=== PATIENT | female | born 1945 | race Caucasian/White ===

== ENCOUNTER 2016-05-16 06:17 | Day surgery (SDC) | payer OTHER, BC ==
[2016-05-15 08:47] VITALS: BMI 29.2
[~2016-05-16 06:17] MED LIST: BSS (NA/CA/MG/K) BALANCED SALT SOLUTION OPHTH SOLN 15 ML BOTTLE OD ONE; CHONDROITIN SU A/HYALUR SOD 1 KIT IO ONE; LIDOCAINE HCL 1% PRESERVATIVE FREE - 30ML VIAL IO ONE; TOBRA 0.3%/DEXAMETH 0.1% OPHTHALMIC SUSP 2.5 ML BTL TP ONE
--- NOTE | 2016-05-16 06:17 | HP ---
History & Physical Update - History History: No Change - Physical Physical: No Change - Assessment Assessment: No Change - Plan Plan: No Change
[2016-05-16] MEDS ORDERED: TROPICAMIDE 1% OPHTH SOLN 15 ML BOTTLE OP SCH (06:30)
[2016-05-16] MEDS ORDERED: CYCLOPENTOLATE HCL 1% OPHTH SOLN 2 ML BOTTLE OP SCH (06:30)
[2016-05-16] MEDS ORDERED: MOXIFLOXACIN HCL 0.5% OPHTHALMIC 3 ML BOTTLE OP SCH (06:30)
[2016-05-16] MEDS ORDERED: PHENYLEPHRINE 2.5% OPHTH SOLN 15 ML BOTTLE OP SCH (06:30)
[2016-05-16 06:41] VITALS: TEMP 97.6
[2016-05-16] MEDS: PHENYLEPHRINE 2.5% OPHTH SOLN 15 ML BOTTLE ONE ×3 (06:55→07:12)
[2016-05-16] MEDS: MOXIFLOXACIN HCL 0.5% OPHTHALMIC 3 ML BOTTLE ONE ×3 (06:55→07:12)
[2016-05-16] MEDS: TROPICAMIDE 1% OPHTH SOLN 15 ML BOTTLE ONE ×3 (06:55→07:12)
[2016-05-16] MEDS: CYCLOPENTOLATE HCL 1% OPHTH SOLN 2 ML BOTTLE ONE ×3 (06:55→07:12)
[2016-05-16] MEDS ORDERED: TOBRA 0.3%/DEXAMETH 0.1% OPHTHALMIC SUSP 2.5 ML BTL ONE (07:21)
[2016-05-16] MEDS ORDERED: LIDOCAINE HCL/PF 1% SDV 5ML VIAL ONE (07:21)
[2016-05-16] MEDS ORDERED: EPINEPHrine/PF 1 MG/1 ML (1:1,000) AMPULE ONE (07:21)
[2016-05-16] MEDS ORDERED: POVIDONE-IODINE 5% OPHTHALMIC PREP 30 ML SOLUTION ONE (07:22)
[2016-05-16] MEDS ORDERED: TETRACAINE 0.5% OPHTH SOLN 2 ML BOTTLE ONE (07:22)
[2016-05-16] MEDS ORDERED: MIDAZOLAM HCL 2 MG/2 ML SINGLE DOSE VIAL ONE (08:04)
[2016-05-16] MEDS ORDERED: TETRACAINE 0.5% HCL 0.6ML DROPPER.BOTTLE TP ONE (08:08)
[2016-05-16] MEDS ORDERED: POVIDONE-IODINE 5% OPHTHALMIC PREP 30 ML SOLUTION OD ONE (08:09)
[2016-05-16] MEDS ORDERED: LIDOCAINE HCL 1% PRESERVATIVE FREE - 30ML VIAL IO ONE (08:13)
[2016-05-16] MEDS ORDERED: BSS (NA/CA/MG/K) BALANCED SALT SOLUTION OPHTH SOLN 15 ML BOTTLE OD ONE ×2 (08:13)
[2016-05-16] MEDS ORDERED: CHONDROITIN SU A/HYALUR SOD 1 KIT IO ONE (08:19)
[2016-05-16] MEDS ORDERED: ACETYLCHOLINE 1:100 INTRA-OCUL 20 MG/2 ML KIT ONE (08:33)
[2016-05-16] MEDS ORDERED: ACETYLCHOLINE 1:100 INTRA-OCUL 20 MG/2 ML KIT IO ONE (08:42)
[2016-05-16] MEDS ORDERED: TOBRA 0.3%/DEXAMETH 0.1% OPHTHALMIC SUSP 2.5 ML BTL TP ONE (09:02)
[2016-05-16] MEDS ORDERED: PROPOFOL 20 ML ONE (09:29)
[2016-05-16] MEDS ORDERED: SUCCINYLCHOLINE CHLORIDE 200 MG/10 ML VIAL ONE (09:31)
[2016-05-16 13:19] VITALS: BP 140/84; PULSE 68
--- NOTE | 2016-05-17 12:10 | OP ---
DATE OF OPERATION: 05/16/2016 SURGEON: Yo Jasso MD PREOPERATIVE DIAGNOSIS: Cataract, right eye. OPERATION: Phacoemulsification and intraocular lens implantation, right eye. POSTOPERATIVE DIAGNOSIS: Cataract, right eye. ANESTHESIA: Topical. COMPLICATIONS: None. BLOOD LOSS: None. SPECIMEN: None. BRIEF HISTORY: The patient is a 71-year-old woman with a past medical history of high cholesterol, who presented with decreased vision in the right eye down to 20/100 due to a 2 to 3+ nuclear sclerotic lens with few cortical spokes. After the risks, benefits and alternatives to cataract surgery were discussed with the patient, she consented to the surgery for the right eye. The patient was brought to the operating room and prepped and draped in the usual sterile fashion and an eyelid speculum was inserted in the right eye. A paracentesis was made and the anterior chamber was inflated with nonpreserved lidocaine. This was followed by injection of Viscoat. A groove was made in the temporal clear cornea which was tunneled forward with a crescent blade. The anterior chamber was entered with a 2.75 keratome. The cystotome was used to make an incision in the center of the capsule and a continuous curvilinear capsulorrhexis was created. The lens was hydrodissected until it was found to rotate freely within the capsular bag. Phacoemulsification was then used to remove the lens in its entirety. Irrigation and aspiration was used to remove residual cortical material. At this point it was noted that there was an irregularity in the posterior capsule, especially temporally, and there was a question of the integrity of the posterior capsule. It was determined to place an MA60AC lens in the sulcus. The anterior chamber and sulcus area were refilled with ProVisc and a 21.5 diopter MA60AC lens was folded and placed in the sulcus and the 2nd haptic was dunked without incident after the wound was enlarged. Irrigation and aspiration was used to remove residual viscoelastic. The wound was stromally hydrated and one 10-0 nylon suture was placed at the wound. Miochol was injected into the eye and the pupil was found to constrict round and regular with no peaking of the wound. No vitreous was found at the wound at any time. The eyelid speculum was removed from the eye and TobraDex drops and a clear shield were placed over the right eye. The patient was transferred to the recovery room in stable condition and will follow up tomorrow. Az [id number] MTDD
== END 2016-05-16 11:00 | disposition home or self-care (01) ==
LOC: JASU-SURG 06:17
PROVIDERS: ATTEND Ophthalmology
PROC: 08RJ3JZ Replacement of Right Lens with Synthetic Substitute, Percutaneous Approach (ICD-10-PCS; principal; 2016-05-16 08:00)
DX: H25.11 Age-related nuclear cataract, right eye (principal)

== ENCOUNTER 2016-06-20 06:24 | Day surgery (SDC) | payer OTHER, BC ==
[2016-06-15 13:26] VITALS: BMI 29.2
--- NOTE | 2016-06-20 06:16 | HP ---
History & Physical Update - History History: No Change - Physical Physical: No Change - Assessment Assessment: No Change - Plan Plan: No Change
[~2016-06-20 06:24] MED LIST changes: -BSS (NA/CA/MG/K) BALANCED SALT SOLUTION OPHTH SOLN 15 ML BOTTLE OD ONE; -CHONDROITIN SU A/HYALUR SOD 1 KIT IO ONE; +CYCLOPENTOLATE HCL 1% OPHTH SOLN 2 ML BOTTLE OP SCH; -LIDOCAINE HCL 1% PRESERVATIVE FREE - 30ML VIAL IO ONE; +MOXIFLOXACIN HCL 0.5% OPHTHALMIC 3 ML BOTTLE OP SCH; +PHENYLEPHRINE 2.5% OPHTH SOLN 15 ML BOTTLE OP SCH; +TROPICAMIDE 1% OPHTH SOLN 15 ML BOTTLE OP SCH
[2016-06-20] MEDS ORDERED: TROPICAMIDE 1% OPHTH SOLN 15 ML BOTTLE ONE (06:34)
[2016-06-20] MEDS ORDERED: CYCLOPENTOLATE HCL 1% OPHTH SOLN 2 ML BOTTLE ONE (06:34)
[2016-06-20] MEDS ORDERED: MOXIFLOXACIN HCL 0.5% OPHTHALMIC 3 ML BOTTLE ONE (06:34)
[2016-06-20] MEDS ORDERED: PHENYLEPHRINE 2.5% OPHTH SOLN 15 ML BOTTLE ONE (06:35)
[2016-06-20] MEDS ORDERED: TROPICAMIDE 1% OPHTH SOLN 15 ML BOTTLE OS ONE ×3 (06:45→07:05)
[2016-06-20] MEDS ORDERED: CYCLOPENTOLATE HCL 1% OPHTH SOLN 2 ML BOTTLE OS ONE ×3 (06:45→07:05)
[2016-06-20] MEDS ORDERED: MOXIFLOXACIN HCL 0.5% OPHTHALMIC 3 ML BOTTLE OS ONE ×3 (06:45→07:05)
[2016-06-20] MEDS ORDERED: PHENYLEPHRINE 2.5% OPHTH SOLN 15 ML BOTTLE OS ONE ×3 (06:45→07:05)
[2016-06-20 06:54] VITALS: TEMP 97.7
[2016-06-20] MEDS ORDERED: TOBRA 0.3%/DEXAMETH 0.1% OPHTHALMIC SUSP 2.5 ML BTL ONE (07:21)
[2016-06-20] MEDS ORDERED: BUPIVACAINE HCL/PF 0.75% 10 ML VIAL ONE (07:21)
[2016-06-20] MEDS ORDERED: LIDOCAINE 1% P/F 10 MG/ML VIAL ONE (07:21)
[2016-06-20] MEDS ORDERED: EPINEPHrine/PF 1 MG/1 ML (1:1,000) AMPULE ONE (07:21)
[2016-06-20] MEDS ORDERED: ACETYLCHOLINE 1:100 INTRA-OCUL 20 MG/2 ML KIT ONE (07:22)
[2016-06-20] MEDS ORDERED: BSS (NA/CA/MG/K) BALANCED SALT SOLUTION OPHTH SOLN 15 ML BOTTLE ONE (07:22)
[2016-06-20] MEDS ORDERED: TRYPAN BLUE 0.5 ML DISP.SYRIN ONE (07:22)
[2016-06-20] MEDS ORDERED: POVIDONE-IODINE 5% OPHTHALMIC PREP 30 ML SOLUTION ONE (07:22)
[2016-06-20] MEDS ORDERED: MIDAZOLAM HCL 2 MG/2 ML SINGLE DOSE VIAL ONE (07:58)
[2016-06-20] MEDS ORDERED: TETRACAINE 0.5% OPHTH SOLN 2 ML BOTTLE TP ONE (07:58)
[2016-06-20] MEDS ORDERED: LIDOCAINE HCL 1% PRESERVATIVE FREE - 30ML VIAL IO ONE (08:10)
[2016-06-20] MEDS ORDERED: CHONDROITIN SU A/HYALUR SOD 1 KIT IO ONE (08:11)
[2016-06-20] MEDS ORDERED: TOBRA 0.3%/DEXAMETH 0.1% OPHTHALMIC SUSP 2.5 ML BTL TP ONE (08:27)
[2016-06-20 09:50] VITALS: BP 140/88; PULSE 68
--- NOTE | 2016-06-21 07:57 | OP ---
DATE OF OPERATION: 06/20/2016 SURGEON: Yo Jasso MD PREOPERATIVE DIAGNOSIS: Cataract, left eye. OPERATION: Phacoemulsification and intraocular lens implantation, left eye. POSTOPERATIVE DIAGNOSIS: Cataract, left eye. ANESTHESIA: Topical. COMPLICATIONS: None. BLOOD LOSS: None. SPECIMEN: None. BRIEF HISTORY: The patient is a 71-year-old woman with a past medical history of high cholesterol who presented with decreased vision in the left eye due to 2 to 3+ nuclear sclerotic lens with nasal anterior cortical changes. After the risks, benefits, and alternatives to cataract surgery were discussed with the patient, she consented to cataract surgery for the left eye. DESCRIPTION OF PROCEDURE: The patient was brought to the operating room and prepped and draped in the usual sterile fashion. Then, an eyelid speculum was inserted in the left eye, a paracentesis was made, and the anterior chamber was inflated with nonpreserved lidocaine. This was followed by injection of Viscoat. A groove was made in the superotemporal clear cornea which was tunneled forward with a crescent blade. The anterior chamber was entered with a 2.75 keratome. The cystotome was used to make an incision at the center of the capsule, and a continuous curvilinear capsulorrhexis was created. The lens was hydrodissected until it was found to rotate freely within the capsular bag. Phacoemulsification was then used to remove the lens in its entirety. Irrigation and aspiration were used to remove residual cortical material. The anterior chamber and capsular bag were reinflated with Provisc, and a 22.5 diopter [id number] AcrySof intraocular lens was injected into the capsular bag using the Maple injector. The lens was dialed into place using the Sinskey hook. Irrigation and aspiration were used to remove residual viscoelastic. The wound was stromally hydrated until it was found to be watertight and the eye was in an appropriate pressure. The eyelid speculum was removed from the eye and TobraDex drops and a clear shield were placed over the left eye. The patient was transferred to the recovery room in stable condition and will follow up tomorrow. Az [id number] MTDD
== END 2016-06-20 09:56 | disposition home or self-care (01) ==
LOC: JASU-SURG 06:24
PROVIDERS: ATTEND Ophthalmology
PROC: 08RK3JZ Replacement of Left Lens with Synthetic Substitute, Percutaneous Approach (ICD-10-PCS; principal; 2016-06-20 08:00)
DX: H25.12 Age-related nuclear cataract, left eye (principal)

== ENCOUNTER 2018-01-31 19:37 | Inpatient (IN) | payer OTHER, BC ==
--- NOTE | 2018-01-31 20:08 | PDOC ---
Attending Attestation - HPI HPI: 01/31/18 21:00 The patient is a 72 year old female with a significant past medical history of HLD who presents to the ED with complaints of weakness since earlier today. Patient reports a sudden onset of right leg weakness around 12:30 pm earlier today. Patient states she was walking out of a yoga class when she developed weakness on her right leg and starting leaning towards her right side while walking. Patient also reports a weird sensation on her right hand. Denies similar symptoms in the past. Denies focal numbness/tingling. Denies chest pain or shortness of breath. Denies blurry vision or headache. Denies any other symptoms. - Physicial Exam PE: 01/31/18 21:00 Constitutional: Awake, alert, oriented. No acute distress. Head: Normocephalic. Atraumatic Eyes: PERRL. EOMI. Conjunctivae are not pale. ENT: Mucous membranes are moist and intact. Posterior pharynx without exudates or erythema. Uvula midline. Neck: Supple. Full ROM. No lymphadenopathy. Cardiovascular: Regular rate. Regular rhythm. S1, S2 regular. Distal pulses are 2+ and symmetric. Pulmonary/Chest: No evidence of respiratory distress. Clear to auscultation bilaterally No wheezing, rales or rhonchi. Abdominal: Soft and non-distended. There is no tenderness. No rebound, guarding or rigidity. No organomegaly. No palpable masses. Good bowel sounds. Back: No CVA tenderness. Musculoskeletal: No edema. No cyanosis. No clubbing. Full range of motion in all extremities. Nocalf tenderness. Radial/pedal pulses are intact and 2+ bilaterally Skin: Skin is warm and dry. No petechiae. No purpura. Neurological: Alert and oriented to person, place, and time. Cranial nerves II -XII are grossly intact. Normal speech. Strength is grossly symmetric. No sensory deficits. Normal finger to nose. Normal heel to hernandez. Psychiatric: Good eye contact. Normal interaction, affect and behavior. <Devon Hinson - Last Filed: 01/31/18 21:00> - Resident Resident Name: Sergio Kenny - ED Attending Attestation I have performed the following: I have examined & evaluated the patient, The case was reviewed & discussed with the resident, I agree w/resident's findings & plan, Exceptions are as noted - Medical Decision Making 01/31/18 20:08 I, Dr. Julita Bobby, DO, attest that this document has been prepared under my direction and personally reviewed by me in its entirety. I further attest, that it accurately reflects all work, treatment, procedures and medical decision -making performed by me. 01/31/18 21:03 a/p: 72yo female with hx of HLD with a feeling of R hand and R leg weakness earlier -onset of symptoms was noon today -ambulates with a steady gait -currently NIHSS = 0 -concern for TIA -will obtain labs, head ct, cxr, ekg, trop -will place in obs for further eval of TIA 02/01/18 00:[address] negative for acute cva will place in obs to stroke unit for TIA eval will place consult to Dr. Tomas resident discussed the case with issac who accepts pt to service <Julita Bobby - Last Filed: 02/01/18 00:37> Heart Score/ECG Review - ECG Intrepretation Comment:: 01/31/18 20:13 sinus at 70, nl axis, lvh, nl interval, t wave inversions to anterior leads, t wave flattening lateral leads, abnl ekg <Julita Bobby - Last Filed: 02/01/18 00:37> NIH Stroke Scale - Last Known Well Date/Time & Onset Date Last Known Well: 01/31/18 Time Last Known Well: 12:00 - Initial Evaluation Level of consciousness: Alert Ask patient the month and their age: Answers both correctly Ask patient to open & close eyes; make fist and let go: Obeys both correctly Best gaze (horizontal eye movement): Normal Visual field testing: No visual field loss Facial paresis (Show teeth/raise eyebrows/close eyes tight): Normal symmetrical movement Motor Function: Left Arm: Normal Motor Function: Right Arm: Normal (extends arm 90 (or 45) degrees for 10 seconds without drift Motor Function: Left Leg: Normal (extends leg 30 degrees for 5 seconds without drift) Motor Function: Right Leg: Normal (extends leg 30 degrees for 5 seconds without drift) Limb Ataxia: No ataxia Sensory(Use pinprick test arms,legs,trunk,face/side to side): Normal Best language (Describe picture, name items, read sentences): No Aphasia Dysarthria (read several words): Normal articulation Extinction and Inattention: No abnormality - Total Score NIH Stroke Scale Score: 0 <Julita Bobby - Last Filed: 02/01/18 00:37> Attestations - Attestations 01/31/18 21:01 Documentation prepared by Devon Hinson, acting as medical lab assistant for Julita Bobby DO <Devon Hinson - Last Filed: 01/31/18 21:00> tPA Exclusion checklist 3-4.5h - Time Elapsed Date last known well: 01/31/18 Time last known well: 12:00 Elaspsed time: Day(s) and 12 Hour(s) and 36 Minutes - Thrombolytic Therapy Candidate Is patient eligible for thrombolytic therapy: No - Ineligibility reason(s) Reasons No tPA given: Outside of window - delayed arrival (rapid resolution of symptoms which started at noon today) <Julita Bobby - Last Filed: 02/01/18 00:37>
[2018-01-31 20:14] VITALS: BMI 28.3
--- NOTE | 2018-01-31 20:31 | PDOC ---
History of Present Illness - General Stated Complaint: RIGHT SIDE WEAKNESS Time Seen by Provider: 01/31/18 20:01 History Source: Patient Exam Limitations: No Limitations - History of Present Illness Initial Comments: 01/31/18 20:25 72 yo female BIBA from urgent care, [facility] presents to the ED for sudden onset right leg weakness at 12:30 today. Patient states while at yoga (not intense, mainly deep breathing exercises) she suddenly felt weak and unsteady in the right leg and later went to [facility] for evaluation. At the urgent care, pt was noted to have difficulty writing with the right hand. Presented to the ED with continued right leg weakness and unsteady gait along with numbness, no weakness in the right hand NIH Stroke Scale - Initial Evaluation Level of consciousness: Alert Ask patient the month and their age: Answers both correctly Ask patient to open & close eyes; make fist and let go: Obeys both correctly Best gaze (horizontal eye movement): Normal Visual field testing: No visual field loss Facial paresis (Show teeth/raise eyebrows/close eyes tight): Normal symmetrical movement Motor Function: Left Arm: Normal Motor Function: Right Arm: Normal (extends arm 90 (or 45) degrees for 10 seconds without drift Motor Function: Left Leg: Normal (extends leg 30 degrees for 5 seconds without drift) Motor Function: Right Leg: Normal (extends leg 30 degrees for 5 seconds without drift) Limb Ataxia: No ataxia Sensory(Use pinprick test arms,legs,trunk,face/side to side): Normal Best language (Describe picture, name items, read sentences): No Aphasia Dysarthria (read several words): Normal articulation Extinction and Inattention: No abnormality - Total Score NIH Stroke Scale Score: 0 Past History - Past Medical History Allergies/Adverse Reactions: Allergies Allergy/AdvReac Type Severity Reaction Status Date / Time No Known Allergies Allergy Verified 01/31/18 20:12 Home Medications: Ambulatory Orders Atorvastatin Ca [Lipitor] 10 mg PO TID 05/15/16 Multivitamins [Multivit ([facility] Formulary)] 1 tab PO DAILY 05/15/16 Anemia: No Asthma: No Cancer: No Cardiac Disorders: No CVA: No COPD: No CHF: No Dementia: No Diabetes: No GI Disorders: No Disorders: No HTN: No Hypercholesterolemia: Yes Liver Disease: No Seizures: No Thyroid Disease: No - Surgical History Abdominal Surgery: No Appendectomy: No Cardiac Surgery: No Cholecystectomy: No Lung Surgery: No Orthopedic Surgery: No - Suicide/Smoking/Psychosocial Hx Smoking History: Unknown if ever smoked Have you smoked in the past 12 months: No Information on smoking cessation initiated: No Hx Alcohol Use: No Drug/Substance Use Hx: No Substance Use Type: None Hx Substance Use Treatment: No Review of Systems - Review of Systems Constitutional: No: Chills, Fever HEENTM: No: Blurred Vision, Double Vision Respiratory: No: Shortness of Breath Cardiac (ROS): No: Chest Pain, Edema ABD/GI: No: Constipated, Diarrhea, Nausea, Vomiting *Physical Exam - Vital Signs Last Vital Signs Temp Pulse Resp BP Pulse Ox 98.1 F 72 18 148/81 94 L 01/31/18 19:40 01/31/18 19:40 01/31/18 19:40 01/31/18 19:40 01/31/18 19:40 ED Treatment Course - LABORATORY CBC & Chemistry Diagram: 01/31/18 21:20 01/31/18 22:15 *DC/Admit/Observation/Transfer Diagnosis at time of Disposition: TIA (transient ischemic attack) - Discharge Dispostion Condition at time of disposition: Stable Decision to Admit order: Yes - Referrals Referrals: Farooq Jamison [Primary Care Provider] - - Patient Instructions - Post Discharge Activity
[2018-01-31 23:02] LABS: ALBUMIN 4.2 g/dl (3.4-5.0); ALK PHOS 61 U/L (45-117); ANION GAP 9 MMOL/L (8-16); BILIRUBIN,TOTAL 0.4 mg/dL (0.2-1); BLOOD UREA NITROGEN 22 mg/dL (7-18); CALCIUM 9.4 mg/dL (8.5-10.1); CHLORIDE 103 mmol/L (98-107); CO2 26 mmol/L (21-32); GLUCOSE,RANDOM 94 mg/dL (74-106); SGOT/AST 21 U/L (15-37); SGPT/ALT 23 U/L (13-61); SODIUM 139 mmol/L (136-145); TOT PROT 7.5 g/dl (6.4-8.2)
[2018-01-31 23:04] LABS: BASO % 0.6 % (0-2.0); EOS % 4.5 % (0-4.5); HEMATOCRIT 35.5 % (32.4-45.2); HEMOGLOBIN 11.6 GM/dL (10.7-15.3); LYMPH % 20.6 % (8-40); MCHC 32.7 g/dl (32.0-36.0); MEAN CELL VOLUME 91.9 fl (80-96); MEAN PLT VOLUME 8.3 fl (7.5-11.1); MONO % 10.8 % (3.8-10.2); NEUT % 63.5 % (42.8-82.8); PLATELET COUNT 273 K/MM3 (134-434); RBC 3.86 M/mm3 (3.60-5.2); RDW 13.9 % (11.6-15.6); WHITE BLOOD COUNT 6.1 K/mm3 (4.0-10.0)
[2018-01-31 23:11] LABS: URINE APPEARANCE CLEAR; URINE BILIRUBIN NEGATIVE (<2.0 mg/dL); URINE COLOR STRAW; URINE GLUCOSE (UA) NEGATIVE (NEGATIVE); URINE KETONE NEGATIVE (NEGATIVE); URINE LEUK ESTERASE NEGATIVE (NEGATIVE); URINE NITRITE NEGATIVE (NEGATIVE); URINE PROTEIN NEGATIVE (NEGATIVE); URINE UROBILINOGEN NEGATIVE mg/dL (0.2-1.0)
--- NOTE | 2018-02-01 03:09 | HP ---
CHIEF COMPLAINT: right upper and lower extremity weakness PCP: Dr. Rod Chavez HISTORY OF PRESENT ILLNESS: Patient is a 72 year old female with history of hyperlipidemia, presents with complaint of right upper and lower extremity weakness. States the symptoms began at approx. 1pm after she was leaving [employer] class. She denies any fall, trauma, or inciting event. States that she had difficulty walking as her right lower extremity felt weaker than the left. This is first time she has experienced these symptoms. Her drove her to [facility] where she noticed that she had difficulty writing and filling out the forms. She was advised to come to the Emergency Department. She states that her right upper extremity weakness is improving more than her right lower extremity weakness. At baseline she ambulates without walker or cane, however she currently does not feel like she is walking appropriately due to the weakness. She denies numbness, or paresthesias of upper or lower extremities. She denies history of stroke, or heart attack. She endorses a carotid duplex that was done approx. 3 months ago and was told it was "normal". She has never had stress test, cardiac echo, or cardiac catheterization. ER course was notable for: (1) EKG, troponins (2) CT head (3) CXR PAST MEDICAL HISTORY: Hyperlipidemia PAST SURGICAL HISTORY: denies Social History: Smoking: Former smoker; smoked one pack a day for 10 years. Quit 25 years ago. Alcohol: admits one glass of wine with dinner Drugs: denies Family History: No family history of AR or stroke. Father: at 75 y/o. Had stomach cancer Mother at 82. hypertension, stomach ulcers Allergies No Known Allergies Allergy (Verified 01/31/18 20:12) HOME MEDICATIONS: Home Medications Medication Instructions Recorded Atorvastatin Ca [Lipitor] 10 mg PO TID 05/15/16 Multivitamins [Multivit ([facility] 1 tab PO DAILY 05/15/16 Formulary)] REVIEW OF SYSTEMS CONSTITUTIONAL: Absent: fever, chills, diaphoresis, generalized weakness, malaise, loss of appetite, weight change HEENT: Absent: rhinorrhea, nasal congestion, throat pain, throat swelling, difficulty swallowing, mouth swelling, ear pain, eye pain, visual changes CARDIOVASCULAR: Absent: chest pain, syncope, palpitations, irregular heart rate, lightheadedness , peripheral edema RESPIRATORY: Absent: cough, shortness of breath, dyspnea with exertion, orthopnea, wheezing, stridor, hemoptysis GASTROINTESTINAL: Absent: abdominal pain, abdominal distension, nausea, vomiting, diarrhea, constipation, melena, hematochezia GENITOURINARY: Absent: dysuria, frequency, urgency, hesitancy, hematuria, flank pain, genital pain MUSCULOSKELETAL: Absent: myalgia, arthralgia, joint swelling, back pain, neck pain SKIN: Absent: rash, itching, pallor HEMATOLOGIC/IMMUNOLOGIC: Absent: easy bleeding, easy bruising, lymphadenopathy, frequent infections ENDOCRINE: Absent: unexplained weight gain, unexplained weight loss, heat intolerance, cold intolerance NEUROLOGIC: Admits: right lower extremity weakness, unsteady gait (due to weakness). Absent : headache, paresthesias, dizziness, seizure, mental status changes, bladder or bowel incontinence PSYCHIATRIC: Absent: anxiety, depression, suicidal or homicidal ideation, hallucinations. PHYSICAL EXAMINATION Vital Signs - 24 hr 01/31/18 01/31/18 19:40 20:05 Temperature 98.1 F Pulse Rate 72 Respiratory 18 Rate Blood Pressure 148/81 O2 Sat by Pulse 94 L 100 Oximetry (%) GENERAL: Awake, alert, and fully oriented, in no acute distress. HEAD: Normal with no signs of trauma. No facial droop noted. EYES: Pupils equal, round and reactive to light, extraocular movements intact without nystagmus b/l. Sclera anicteric, conjunctiva clear without injection. No ptosis b/l. EARS, NOSE, THROAT: Ears normal, nares patent, oropharynx clear without exudates. Moist mucous membranes. NECK: Normal range of motion, supple without lymphadenopathy, JVD, or masses. LUNGS: Breath sounds equal, clear to auscultation bilaterally. No wheezes, and no crackles. No accessory muscle use. HEART: Regular rate and rhythm, normal S1 and S2 without murmur, rub or gallop. ABDOMEN: Soft, nontender to light and deep palpation, not distended. Normoactive bowel sounds, no guarding, no rebound tenderness. No hepatomegaly or splenomegaly appreciated. MUSCULOSKELETAL: Normal range of motion at all joints. No bony deformities or tenderness. UPPER EXTREMITIES: 2+ radial pulses b/l. Warm, well-perfused. Strength 5/5 for flexion, extension, abduction, adduction b/l. Care Associate strength equal b/l. LOWER EXTREMITIES: 2+ dorsalis pedis pulses b/l, warm, well-perfused. Strength 5 /5 right lower extremity, and 5/5 left lower extremity for hip flexion extension , and knee flexion, extension, dorsiflexion, plantarflexion. NEUROLOGICAL: Cranial nerves II-XII intact. Normal speech. Ataxic gait due to weakness of RLE. PSYCHIATRIC: Cooperative. Good eye contact. Appropriate mood and affect upon my encounter. SKIN: Warm, dry, normal turgor, no rashes or lesions noted, normal capillary refill. Laboratory Results - last 24 hr 01/31/18 01/31/18 01/31/18 21:20 21:20 22:15 WBC 6.1 RBC 3.86 Hgb 11.6 Hct 35.5 MCV 91.9 MCH 30.0 MCHC 32.7 RDW 13.9 Plt Count 273 MPV 8.3 Absolute Neuts (auto) 3.9 Neutrophils % 63.5 Lymphocytes % 20.6 Monocytes % 10.8 H Eosinophils % 4.5 Basophils % 0.6 Nucleated RBC % 0 Sodium Cancelled Potassium Cancelled Chloride Cancelled Carbon Dioxide Cancelled Anion Gap Cancelled BUN Cancelled Creatinine Cancelled Creat Clearance w eGFR Cancelled Random Glucose Cancelled Calcium Cancelled Total Bilirubin Cancelled AST Cancelled ALT Cancelled Alkaline Phosphatase Cancelled Creatine Kinase Cancelled Troponin I Cancelled Total Protein Cancelled Albumin Cancelled Urine Color Straw Urine Appearance Clear Urine pH 5.0 Ur Specific [place] 1.006 L Urine Protein Negative Urine Glucose (UA) Negative Urine Ketones Negative Urine Blood Negative Urine Nitrite Negative Urine Bilirubin Negative Urine Urobilinogen Negative Ur Leukocyte Esterase Negative 01/31/18 22:15 WBC RBC Hgb Hct MCV MCH MCHC RDW Plt Count MPV Absolute Neuts (auto) Neutrophils % Lymphocytes % Monocytes % Eosinophils % Basophils % Nucleated RBC % Sodium 139 Potassium 4.0 Chloride 103 Carbon Dioxide 26 Anion Gap 9 BUN 22 H Creatinine 1.0 Creat Clearance w eGFR 54.20 Random Glucose 94 Calcium 9.4 Total Bilirubin 0.4 AST 21 ALT 23 Alkaline Phosphatase 61 Creatine Kinase 67 Troponin I < 0.02 Total Protein 7.5 Albumin 4.2 Urine Color Urine Appearance Urine pH Ur Specific [place] Urine Protein Urine Glucose (UA) Urine Ketones Urine Blood Urine Nitrite Urine Bilirubin Urine Urobilinogen Ur Leukocyte Esterase ASSESSMENT/PLAN: Patient is a 72 year old female with history of hyperlipidemia, presents with complaint of right upper and lower extremity weakness. Possible TIA -NIHSS= 1 for slight right-sided upper extremity pronator drift -CT head shows no acute intracranial hemorrhage. Chronic microvascular changes and chronic right frontal subcortical infarct noted. -EKG shows normal sinus rhythm at 70 bpm -F/U MRI brain -F/U neurology consult (Dr. Tomas) -Neuro checks Q2H -Aspirin 81mg PO daily -Fall precautions -PT consult -Speech/ swallow consult Hyperlipidemia -Patient states she takes atorvastatin 10mg Mon, Wed, Fri. Will need to reconcile her medications. -F/U lipid panel FEN -No IV fluids. Encourage judicious oral hydration -Follow CMP -Regular diet Prophylaxis -Lovenox 40mg subq daily Disposition -Telemetry observation Visit type - Emergency Visit Emergency Visit: Yes ED Registration Date: 02/01/18 Care time: The patient presented to the Emergency Department on the above date and was hospitalized for further evaluation of their emergent condition. - New Patient This patient is new to me today: Yes Date on this admission: 02/01/18 - Critical Care Critical Care patient: No
[2018-02-01 04:13] LABS: CHOLESTEROL 182 mg/dL (50-200); HDL CHOLESTEROL 74 mg/dL (40-60); MAGNESIUM 2.2 mg/dL (1.8-2.4); TRIGLYCERIDES 80 mg/dL (0-150)
--- NOTE | 2018-02-01 05:35 | PN ---
Teaching Attending Note Name of Resident: Jesusita Awan ATTENDING PHYSICIAN STATEMENT I saw and evaluated the patient. I reviewed the resident's note and discussed the case with the resident. I agree with the resident's findings and plan as documented. SUBJECTIVE: Patient is a 72 y/o CF with a PMH of hyperlipidemia who is in good health presenting with RLE weakness that has since resolved. She was at yoga class this afternoon from 1230-1P and after class she noted RLE weakness. noted R-hand weakness, drove to [facility] and was directed to go to the ER. When she arrived here her sx were beginning to resolve in terms of her upper extremity. She was hemodynamically stable and afebrile with negative head CT. Denies saddle anesthesia or loss of bowel or bladder function. No focal neuro sx. She still tells me that her leg feels subjectively weak but I didn't note anything on NIH or any gait abnormalities when walking. CT negative , NIH 0. Admit to medicine for further workup and monitoring to r/o TIA and elucidate the cause of her LE weakness. 10 sys ROS done and negative aside from HPI PMH and PSH per chart Social hx negative for EtOH and Smoking FH asked and noncontributory OBJECTIVE: NAD, AAO, resting in bed CN2-12 grossly intact, NIH 0 when I assessed the patient (and per ER as well), ambulated 100+ feet without any abnormalities in her gait. Speech is fluid. Swallowing is intact. Strength 5/5 in all extremities. RRR s1/2 no mgr, no bruits Lungs CTAB without any mgr Mood normal, affect normal [facility] Stroke Dysphagia Screen is LOW RISK thus may proceed with PO without swallow study Labs reviewed; HDL actually high Imaging reviewed; MRI pending, no acute disease CT head She verbally informed me she gets carotid dopplers done on outside; awaiting old records Echo pending Telemetry reviewed EKG reviewed ASSESSMENT AND PLAN: Mrs. Boudreaux is a 72 y/o CF presenting with RLE weakness and RUE weakness; sx have resolved in her upper extremity and are nearly gone in her lower. NIH is zero. Admit to r/o CVA, TIA and to workup her weakness. 1) RLE Weakness -R/O any CVA; check echo and MRI. Carotid dopplers aparently done by her primary as an outpatient so we will have to obtain and review those records. -Neuro checks, seizure precautions -Neuro consulted; appreciate specialist input -Check labs with risk factors; check TSH, B12, ESR/CRP -PT; passed bedside swallow and is low risk -ASA for primary prevention 2) HLD -Check lipids; adjust medications as needed. If she does have a true CVA she should be on a statin at time of DC. 3) Overweight (BMI 28) -Counseled on diet and exercise Full Code Observation; anticipate <72 hours inpatient pending results of further tests
[2018-02-01 06:38] LABS: HEMATOCRIT 36.6 % (32.4-45.2); HEMOGLOBIN 11.9 GM/dL (10.7-15.3); MCH 29.8 pg (25.7-33.7); MCHC 32.5 g/dl (32.0-36.0); MEAN CELL VOLUME 91.8 fl (80-96); MEAN PLT VOLUME 7.7 fl (7.5-11.1); PLATELET COUNT 277 K/MM3 (134-434); RBC 3.98 M/mm3 (3.60-5.2); RDW 13.6 % (11.6-15.6)
[2018-02-01 07:14] LABS: ALBUMIN 3.8 g/dl (3.4-5.0); ALK PHOS 54 U/L (45-117); ANION GAP 8 MMOL/L (8-16); BILIRUBIN,TOTAL 0.5 mg/dL (0.2-1); BLOOD UREA NITROGEN 17 mg/dL (7-18); CHLORIDE 104 mmol/L (98-107); CO2 27 mmol/L (21-32); CREATININE 0.7 mg/dL (0.55-1.3); GLUCOSE,RANDOM 101 mg/dL (74-106); MAGNESIUM 2.3 mg/dL (1.8-2.4); PHOSPHOROUS 3.3 mg/dL (2.5-4.9); POTASSIUM 4.1 mmol/L (3.5-5.1); SGOT/AST 21 U/L (15-37); SGPT/ALT 22 U/L (13-61); SODIUM 140 mmol/L (136-145); TOT PROT 6.8 g/dl (6.4-8.2)
[2018-02-01 08:43] LABS: CHOLESTEROL 169 mg/dL (50-200); HDL CHOLESTEROL 70 mg/dL (40-60); TRIGLYCERIDES 53 mg/dL (0-150)
[2018-02-01] MEDS ORDERED: ENOXAPARIN NA (PORCINE) 40 MG/0.4 ML DISP.SYRIN SQ ONE (10:11)
[2018-02-01] MEDS ORDERED: ASPIRIN 81 MG CHEWABLE TABLETS ONE (10:11)
[2018-02-01] MEDS: ASPIRIN 81 MG CHEWABLE TABLETS PO SCH (10:12)
[2018-02-01] MEDS: ENOXAPARIN NA (PORCINE) 40 MG/0.4 ML DISP.SYRIN SQ SCH (10:12)
--- NOTE | 2018-02-01 10:49 | EKG ---
Test Reason : Blood Pressure : / mmHG Vent. Rate : 070 BPM Atrial Rate : 070 BPM P-R Int : 130 ms QRS Dur : 084 ms QT Int : 400 ms P-R-T Axes : 047 -13 017 degrees QTc Int : 432 ms NORMAL SINUS RHYTHM POSSIBLE LEFT ATRIAL ENLARGEMENT LEFT VENTRICULAR HYPERTROPHY T WAVE ABNORMALITY, CONSIDER ANTERIOR ISCHEMIA ABNORMAL ECG NO PREVIOUS ECGS AVAILABLE Confirmed by YORDY MCDERMOTT MD ([id number]) on 02/01/2018 10:49:27 AM Referred By: Confirmed By:YORDY MCDERMOTT MD
--- NOTE | 2018-02-01 11:12 | PN ---
Physical Exam: SUBJECTIVE: Patient seen and examined this morning at bedside. Patient says her RLE weakness came on all of a sudden after exercising and is unable to identify any triggers. Later on while at [facility], her RUE felt weak to handgrip and patient was unable to write. She has never experienced this in the past. During my interview, she says her RUE weakness has improved but not completely resolved. Denies numbness, tingling, chest pain, SOB, nausea, vomiting. OBJECTIVE: Vital Signs Period Temp Pulse Resp BP Sys/Mariscal Pulse Ox Last 24 Hr 98.0 F-98.1 F 72-87 16-18 141-173/81-90 94-100 GENERAL: A&Ox3, NAD HEAD: NCAT EYES: PERRL, EOMI ENT: Oropharynx clear without exudates, moist mucous membranes. NECK: No JVD LUNGS: Breath sounds equal, clear to auscultation bilaterally, no wheezes. HEART: Regular rate and rhythm, S1, S2 without murmur. ABDOMEN: Soft, nontender, nondistended, + bowel sounds, no guarding EXTREMITIES: 2+ pulses, no edema. NEUROLOGICAL: Cranial nerves II through XII grossly intact. Normal speech. Muscle strength 5/5 to Handgrip, Elbow flexion/extension, Shoulder abduction, Hip flexion, Plantarflexion, dorsiflexion. C5-T1 and L4-S1 gross sensation intact. Patellar Reflex intact b/l. SKIN: Warm, dry, no rashes or lesions noted Laboratory Results - last 24 hr 01/31/18 01/31/18 01/31/18 21:20 21:20 22:15 WBC 6.1 RBC 3.86 Hgb 11.6 Hct 35.5 MCV 91.9 MCH 30.0 MCHC 32.7 RDW 13.9 Plt Count 273 MPV 8.3 Absolute Neuts (auto) 3.9 Neutrophils % 63.5 Lymphocytes % 20.6 Monocytes % 10.8 H Eosinophils % 4.5 Basophils % 0.6 Nucleated RBC % 0 Sodium Cancelled Potassium Cancelled Chloride Cancelled Carbon Dioxide Cancelled Anion Gap Cancelled BUN Cancelled Creatinine Cancelled Creat Clearance w eGFR Cancelled Random Glucose Cancelled Calcium Cancelled Phosphorus Magnesium Total Bilirubin Cancelled AST Cancelled ALT Cancelled Alkaline Phosphatase Cancelled Creatine Kinase Cancelled Troponin I Cancelled Total Protein Cancelled Albumin Cancelled Triglycerides Cholesterol Total LDL Cholesterol HDL Cholesterol Vitamin B12 Serum Folate TSH Urine Color Straw Urine Appearance Clear Urine pH 5.0 Ur Specific [place] 1.006 L Urine Protein Negative Urine Glucose (UA) Negative Urine Ketones Negative Urine Blood Negative Urine Nitrite Negative Urine Bilirubin Negative Urine Urobilinogen Negative Ur Leukocyte Esterase Negative 01/31/18 02/01/18 02/01/18 22:15 03:20 05:30 WBC RBC Hgb Hct MCV MCH MCHC RDW Plt Count MPV Absolute Neuts (auto) Neutrophils % Lymphocytes % Monocytes % Eosinophils % Basophils % Nucleated RBC % Sodium 139 Potassium 4.0 Chloride 103 Carbon Dioxide 26 Anion Gap 9 BUN 22 H Creatinine 1.0 Creat Clearance w eGFR 54.20 Random Glucose 94 Calcium 9.4 Phosphorus Magnesium 2.2 Total Bilirubin 0.4 AST 21 ALT 23 Alkaline Phosphatase 61 Creatine Kinase 67 63 Troponin I < 0.02 < 0.02 Total Protein 7.5 Albumin 4.2 Triglycerides 80 Cancelled Cholesterol 182 Cancelled Total LDL Cholesterol 88 Cancelled HDL Cholesterol 74 H Cancelled Vitamin B12 Serum Folate TSH 2.86 Urine Color Urine Appearance Urine pH Ur Specific [place] Urine Protein Urine Glucose (UA) Urine Ketones Urine Blood Urine Nitrite Urine Bilirubin Urine Urobilinogen Ur Leukocyte Esterase 02/01/18 02/01/18 06:25 06:25 WBC 6.0 RBC 3.98 Hgb 11.9 Hct 36.6 MCV 91.8 MCH 29.8 MCHC 32.5 RDW 13.6 Plt Count 277 MPV 7.7 Absolute Neuts (auto) Neutrophils % Lymphocytes % Monocytes % Eosinophils % Basophils % Nucleated RBC % Sodium 140 Potassium 4.1 Chloride 104 Carbon Dioxide 27 Anion Gap 8 BUN 17 Creatinine 0.7 Creat Clearance w eGFR > 60 Random Glucose 101 Calcium 9.0 Phosphorus 3.3 Magnesium 2.3 Total Bilirubin 0.5 AST 21 ALT 22 Alkaline Phosphatase 54 Creatine Kinase Troponin I Total Protein 6.8 Albumin 3.8 Triglycerides 53 Cholesterol 169 Total LDL Cholesterol 83 HDL Cholesterol 70 H Vitamin B12 1091 H Serum Folate 42 H TSH 2.36 Urine Color Urine Appearance Urine pH Ur Specific [place] Urine Protein Urine Glucose (UA) Urine Ketones Urine Blood Urine Nitrite Urine Bilirubin Urine Urobilinogen Ur Leukocyte Esterase Active Medications Aspirin (Asa -) 81 mg PO DAILY [facility] Last Admin: 02/01/18 10:12 Dose: 81 mg Atorvastatin Calcium (Lipitor -) 20 mg PO HS [facility] Enoxaparin Sodium (Lovenox -) 40 mg SQ DAILY [facility] Last Admin: 02/01/18 10:12 Dose: 40 mg IMAGING: -EKG: NORMAL SINUS RHYTHM, POSSIBLE LEFT ATRIAL ENLARGEMENT, LVH, T WAVE ABNORMALITY, VR 70, QTc 432 -CXR: No acute chest pathology. No comparison studies at this time. -Carotid Doppler: Mild intimal thickening and minimal soft plaque buildup at the right common carotid bifurcation and bulb as well as small plaques at the left common carotid bifurcation and bulb without evidence of hemodynamically significant stenosis, bilaterally. -CT Head without contrast: No definite CT evidence of acute intracranial pathology. Punctate chronic right frontal subcortical infarct. Mild periventricular chronic microvascular ischemic changes. -MRI Brain without contrast: Focal acute/subacute infarct in the left posterior periventricular white matter at the level of the griffin radiata. There is also a left posterior periventricular chronic hemorrhagic lacunar infarct. Moderate atrophy and moderate to marked periventricular chronic microvascular ischemic disease changes are present -ECHO: LV systolic function is normal. EF 50-55%, Mild MR and TR, No pericardial effusion. Transmitral spectral doppler flow pattern is suggestive of impaired LV Relaxation ASSESSMENT/PLAN: 72 y/o F with PMHx female with history of HLD presents with RLE and RUE weakness #Right sided weakness -Likely due to Left MCA Lacunar stroke -NIHSS on admission positive for right-sided upper extremity pronator drift -MRI Brain without contrast: Focal acute/subacute infarct in the left posterior periventricular white matter at the level of the griffin radiata. -ECHO: EF 50-55%, Transmitral spectral doppler flow pattern is suggestive of impaired LV Relaxation -Carotid Doppler: Without evidence of hemodynamically significant stenosis, bilaterally. -EKG noted above -Urine cultures pending -Neurology (Dr. Tomas) consulted, Appreciate Rec's, BP medication can started from tomorrow am -Speech/ swallow consulted -PT consulted -ASA, Lipitor started -Neuro checks Q2H -Head of bed elevated -Fall precautions -Tele #Elevated BP -173/90 this am -Will continue to monitor -BP Sitting 161/89, Standing 152/105 #HLD -Lipid panel noted -Continue home dose Lipitor #FEN -PO Fluids -Lytes wnl -Cholesterol controlled diet #PPx -DVT: Lovenox Dispo: Tele obs Visit type - Emergency Visit Emergency Visit: Yes ED Registration Date: 02/01/18 Care time: The patient presented to the Emergency Department on the above date and was hospitalized for further evaluation of their emergent condition. - New Patient This patient is new to me today: Yes Date on this admission: 02/01/18 - Critical Care Critical Care patient: No - Discharge Referral Referred to [facility] No
--- NOTE | 2018-02-01 14:07 | ECHO ---
Name: MILKA BURGOS Exam:Adult Echocardiogram Study Date: 02/01/2018 11:17 AM Age: 72 yrs Reason For Study: tia Height: 64 in Weight: 165 lb BSA: 1.8 m2 MMode/2D Measurements & Calculations IVSd: 0.86 cm LA dimension: 3.6 cm LVIDd: 4.9 cm LVIDs: 3.2 cm LVPWd: 0.92 cm LVPWs: 1.5 cm EDV(Teich): 111.9 ml ESV(Teich): 42.3 ml Doppler Measurements & Calculations MV E max colton: 46.9 cm/sec Ao V2 max: 143.8 cm/sec MV A max colton: 101.2 cm/sec Ao max P.3 mmHg MV E/A: 0.46 MV dec time: 0.17 sec LV V1 max P.9 mmHg TR max colton: 259.9 cm/sec LV V1 max: 99.2 cm/sec TR max P.1 mmHg PA V2 max: 85.5 cm/sec Med Peak E' Colton: 5.0 cm/sec PA max P.9 mmHg Med E/e': 9.3 Lat Peak E' Colton: 6.1 cm/sec Lat E/e': 7.6 Left Ventricle Left ventricular systolic function is normal. Ejection Fraction = 50-55%. The transmitral spectral Do ppler flow pattern is suggestive of impaired LV relaxation. Right Ventricle The right ventricle is grossly normal size. The right ventricular systolic function is grossly normal . Atria Normal left and right atrial size and function. Mitral Valve The mitral valve is normal in structure and function. There is no mitral valve stenosis. There is mil d mitral regurgitation. Tricuspid Valve The tricuspid valve is normal in structure and function. There is mild tricuspid regurgitation. Aortic Valve There is mild aortic sclerosis.;. No hemodynamically significant valvular aortic stenosis. No aortic regurgitation is present. Pulmonic Valve The pulmonic valve is not well seen, but is grossly normal. There is no pulmonic valvular stenosis. T here is no pulmonic valvular regurgitation. Great Vessels The aortic root is normal size. Pericardium/Pleura There is no pericardial effusion. Interpretation Summary Left ventricular systolic function is normal. Ejection Fraction = 50-55%. There is mild mitral regurgitation. There is mild tricuspid regurgitation. The transmitral spectral Doppler flow pattern is suggestive of impaired LV relaxation. There is mild aortic sclerosis.; There is no pericardial effusion. MD Velasco *Marcio 02/01/2018 02:06 PM
--- NOTE | 2018-02-01 15:09 | CONSULT ---
Admitting History and Physical - Primary Care Physician PCP: Manuela Bernabe - Admission History of Present Illness: Patient is a 72 year old female with history of hyperlipidemia, presents with complaint of right upper and lower extremity weakness. Possible TIA -NIHSS= 1 for slight right-sided upper extremity pronator drift -CT head shows no acute intracranial hemorrhage. Chronic microvascular changes and chronic right frontal subcortical infarct noted. Selected Entries 02/01/18 07:37 Temperature 98.0 F Laboratory Tests 02/01/18 06:25 WBC 6.0 MRI (+) stroke History Source: Patient Limitations to Obtaining History: No Limitations - Smoking History Smoking history: Unknown if ever smoked Have you smoked in the past 12 months: No - Alcohol/Substance Use Hx Alcohol Use: No History - Admission Reason For Visit: TANSIENT ISCHEMIC ATTACK - Diagnostics X-ray: Report Reviewed CT Scan: Report Reviewed MRI: Report Reviewed - General Mental Status: Alert and Oriented, Awake and Alert, Able to Follow Commands Attention: Intact Ability to Follow Directions: Excellent Head/Neck Control: WFL - Hearing Hearing: Functional Speech Evaluation - Communication Primary Language: UPPER SORBIAN Communication: Yes: Within Normal Limits Oral Expression Ability: Yes: No Impairment - Speech Production Able to Make Needs Known: Yes: WNL Intelligibility: Yes: WNL - Speech Characteristics Nasal Resonance: Normal Articulation: Yes: Precise Rate of Speech: Intact - Language/Auditory Comprehension Follows: Yes: 2 Stage Simple Commands Observation: Able to respond to yes/no queries: Yes, Yes/No Confusion: No, Comprehends Conversational Speech: Yes - Language/Verbal Expression Able to Respond to Simple Queries: Yes: WNL Able to Communicate Wants and Needs: Yes: WNL Functional Communication Status: Yes: WNL - Memory/Perception assisted Memory: Yes: WNL Short Term Memory: Yes: WNL - Swallow Evaluation/Bedside Assessment Current Nutritional Intake: Regular, Thin Liquids Oral Secretions: Yes: WFL Dentition: Yes: Adequate Facial Symmetry at Rest: Symmetrical Facial Symmetry on Retraction: Symmetrical Facial Movement: Controlled Sensation: Normal Against Resistance Opening: Normal Against Resistance Closing: Normal Pucker Lips: Normal Smile: Normal Lingual Movement: Normal, Symmetric Lingual Speed of Movement: Normal Lingual Movement Strgth Against Opposition: Normal Lingual Movement Characteristics: Normal Velopharyngeal Movement: Normal Laryngeal Elevation: WFL Laryngeal Movement: Able to Palpate Rate of Intake: WFL Bolus Size: WFL Labial Seal: WFL Chewing: WFL Oral Prep Time: WFL A-P Transit: WFL Pocketing: None Coughing/Throat Clear: No Change in Voice: No Recommendations - Speech Evaluation, Impression/Plan Impression: Pt with right hemiparesis, ambulatory but with motor deficits. (+) CVA. Speech, swallow, ognition, language intact - Dysphagia Impressions/Plan Swallowing Skills: WFL Dysphagia Impressions: No Impairment *Silent aspiration: cannot be R/O at bedside - Recommendations Diet Consistency: Regular Medication Administration: Whole with water Liquids: Thin Liquids
[2018-02-01] MEDS: LISINOPRIL 20 MG TABLET (FP) PO SCH (15:44)
--- NOTE | 2018-02-01 17:42 | CON.NEURO ---
Consult - Alcohol/Substance Use Hx Alcohol Use: No - Smoking History Smoking history: Unknown if ever smoked Have you smoked in the past 12 months: No If you are a former smoker, when did you quit?: 25 years ago Home Medications - Allergies Allergies/Adverse Reactions: Allergies Allergy/AdvReac Type Severity Reaction Status Date / Time No Known Allergies Allergy Verified 01/31/18 20:12 - Home Medications Home Medications: Ambulatory Orders Atorvastatin Ca [Lipitor] 20 mg PO DAILY 05/15/16 Physical Exam-Neuro Vital Signs: Vital Signs Temperature 97.9 F 02/01/18 15:30 Pulse Rate 86 02/01/18 15:30 Respiratory Rate 18 02/01/18 15:30 Blood Pressure 182/106 H 02/01/18 15:30 O2 Sat by Pulse Oximetry (%) 98 02/01/18 15:30 Labs: CBC, BMP 02/01/18 06:25 02/01/18 06:25 Assessment/Plan cc Right arm and leg weakness HPI 72 year old female histoyr of HLD, taking lipitor 10 mg three times a week. She h developed sudden onset right arm and leg weakness. Patient denies any dysphagia, dysarhtria, diplopia, headhace . She seem to be improving , she is able to walk around and able to eat with her hand. She denies any CAD, or smoking, or stroke before. her mri showed left periventricular area acute stroke and carotid ultrasound is normal PAST MEDICAL HISTORY: Hyperlipidemia PAST SURGICAL HISTORY: denies Social History: Smoking: Former smoker; smoked one pack a day for 10 years. Quit 25 years ago. Alcohol: admits one glass of wine with dinner Drugs: denies Family History: No family history of [place] or stroke. Father: at 75 y/o. Had stomach cancer Mother at 82. hypertension, stomach ulcers Allergies No Known Allergies Allergy (Verified 01/31/18 20:12) HOME MEDICATIONS: Home Medications Medication Instructions Recorded Atorvastatin Ca [Lipitor] 10 mg PO TID 05/15/16 Multivitamins [Multivit ([facility] 1 tab PO DAILY 05/15/16 Formulary)] FH,SOCIAL HX, ROS was reviewed in chart Neurological Examination: Alert oriented x 3, speech and memory is good CN all intact, eomi, pupils is reactive, no face asymmetyr, VF normal Motor mild right lower etremity, right upper extremity is normal strength senation is normal ct was normal, mri of brain showed left danny ventricular ischemic lesion carotid ultrasound i snormal Assessment Left mca lacunar stroke, Plan - BP medication can started from tomorrow am - continue aspirin and statin - PT, and speech ordered -Continue supportive care Will continue to follow up Thanking you so much Kin Tomas MD
--- NOTE | 2018-02-01 18:06 | PN ---
Teaching Attending Note Name of Resident: Luann Stephen ATTENDING PHYSICIAN STATEMENT I saw and evaluated the patient. I reviewed the resident's note and discussed the case with the resident. I agree with the resident's findings and plan as documented. SUBJECTIVE: seen at 10 am No fever or chills. feels her strength is better , but still has abnormal gait. no numbness or tingling OBJECTIVE: NAD Cv : RRR Lungs: CTAB Ext : no edema Neuro : EOMI, round equal pupils , reactive to light . no facial droop, uvula at mid line. strenght 5/5 in upper and lower ext proximally and distally. sensation to light touch nl. reflexes 2+ knee jerk and biceps b/l. nl nose to finger. ASSESSMENT AND PLAN: 72 y/o lady with h/o HL who presented with R sided weakness. She was found to have acute stroke . 1- Acute L periventricular stroke: no residual weakness. - ASA, statin. - speech eval noted. - permissive HTN, treat BP > 220 /110 - PT eval. - tele to r/o A fib. - might need prolonged monitoring as out pt.
[2018-02-01] MEDS ORDERED: ATORVASTATIN CA 40 MG TABLET (FP) PO SCH (22:00)
[2018-02-01] MEDS ORDERED: ATORVASTATIN CA 20 MG TABLET (FP) PO SCH (22:00)
[2018-02-02 07:26] LABS: BASO % 0.9 % (0-2.0); EOS % 4.9 % (0-4.5); HEMATOCRIT 35.8 % (32.4-45.2); HEMOGLOBIN 11.9 GM/dL (10.7-15.3); LYMPH % 30.6 % (8-40); MCH 30.3 pg (25.7-33.7); MCHC 33.1 g/dl (32.0-36.0); MEAN CELL VOLUME 91.4 fl (80-96); MEAN PLT VOLUME 7.5 fl (7.5-11.1); MONO % 12.4 % (3.8-10.2); NEUT % 51.2 % (42.8-82.8); PLATELET COUNT 279 K/MM3 (134-434); RBC 3.92 M/mm3 (3.60-5.2); RDW 13.7 % (11.6-15.6); WHITE BLOOD COUNT 4.9 K/mm3 (4.0-10.0)
[2018-02-02 09:11] LABS: ALBUMIN 3.8 g/dl (3.4-5.0); ALK PHOS 55 U/L (45-117); ANION GAP 8 MMOL/L (8-16); BILIRUBIN,TOTAL 0.7 mg/dL (0.2-1); BLOOD UREA NITROGEN 13 mg/dL (7-18); CALCIUM 9.1 mg/dL (8.5-10.1); CHLORIDE 100 mmol/L (98-107); CO2 29 mmol/L (21-32); CREATININE 0.7 mg/dL (0.55-1.3); GLUCOSE,RANDOM 89 mg/dL (74-106); MAGNESIUM 2.3 mg/dL (1.8-2.4); PHOSPHOROUS 3.4 mg/dL (2.5-4.9); POTASSIUM 4.5 mmol/L (3.5-5.1); SGOT/AST 19 U/L (15-37); SGPT/ALT 20 U/L (13-61); SODIUM 136 mmol/L (136-145); TOT PROT 6.6 g/dl (6.4-8.2)
[2018-02-02] MEDS: ASPIRIN 81 MG CHEWABLE TABLETS PO SCH (10:35)
[2018-02-02] MEDS: LISINOPRIL 20 MG TABLET (FP) PO SCH (10:36)
[2018-02-02] MEDS: ENOXAPARIN NA (PORCINE) 40 MG/0.4 ML DISP.SYRIN SQ SCH (10:36)
--- NOTE | 2018-02-02 11:07 | PN ---
Progress Note (short form) - Note Progress Note: 72 year old female histoyr of HLD, taking lipitor 10 mg three times a week. She h developed sudden onset right arm and leg weakness. Patient denies any dysphagia, dysarhtria, diplopia, headhace . She seem to be improving , she is able to walk around and able to eat with her hand. She denies any CAD, or smoking, or stroke before. her mri showed left periventricular area acute stroke and carotid ultrasound is normal She is feeling better and ready to be discharged. She feels she recovered completely and would be able to take care of her at home Neurological Examination: Alert oriented x 3, speech and memory is good CN all intact, eomi, pupils is reactive, no face asymmetyr, VF normal Motor mild right lower etremity, right upper extremity is normal strength senation is normal ct was normal, mri of brain showed left danny ventricular ischemic lesion carotid ultrasound i snormal Assessment Left mca lacunar stroke, very minimal right leg weakness Plan -bp control - continue aspirin and statin - concur with discharge and can follow with electronic sensing equipment assembler for longer loop recording Thanking you so much Kin Tomas MD
--- NOTE | 2018-02-02 11:19 | PN ---
Teaching Attending Note Name of Resident: Luann Stephen ATTENDING PHYSICIAN STATEMENT I saw and evaluated the patient. I reviewed the resident's note and discussed the case with the resident. I agree with the resident's findings and plan as documented. SUBJECTIVE: No fever or chills. No abd pain . NO new weakness or numbness. she feels that her fine motor skills in her R hand is affected. no weakness in her legs but her gait is still not completely nL OBJECTIVE: NAD Cv: RRR Lungs: CTAB Ext : no edema Neuro: EOMI, round equal pupils , reactive to light . no facial droop, uvula at mid line. strenght 5/5 in upper and lower ext proximally and distally. sensation to light touch nl. reflexes 2+ knee jerk and biceps b/l. nl nose to finger. Romberg sign neg . gait is steady. ASSESSMENT AND PLAN: 72 y/o lady with h/o HL who presented with R sided weakness. She was found to have acute stroke . 1- Acute L periventricular stroke: no residual weakness, but R hand fine motor skills affected - cont ASA, statin and start lisinopril - PT eval pending . called - tele with no A fib - refer to card for prolonged monitoring - f/u with neuro - will give script for PT and OT - will give script for blood work ( BMP ) as lisinopril is newly added dc home . plan was d/w in details with her
--- NOTE | 2018-02-02 12:02 | DS ---
Physical Exam: SUBJECTIVE: Patient seen and examined this morning. Believes her Right hand has been affected, Otherwise no new complaints. No overnight acute events as per nursing staff. Denies numbness, tingling, chest pain, SOB, nausea, vomiting. OBJECTIVE: Vital Signs Period Temp Pulse Resp BP Sys/Mariscal Pulse Ox Last 24 Hr 97.4 F-98.2 F 58-86 16-20 133-182/67-106 98-98 PHYSICAL EXAM GENERAL: A&Ox3, NAD HEAD: NCAT EYES: PERRL, EOMI ENT: Oropharynx clear without exudates, moist mucous membranes. NECK: No JVD LUNGS: Breath sounds equal, clear to auscultation bilaterally, no wheezes. HEART: Regular rate and rhythm, S1, S2 without murmur. ABDOMEN: Soft, nontender, nondistended, + bowel sounds, no guarding EXTREMITIES: 2+ pulses, no edema. NEUROLOGICAL: Cranial nerves II through XII grossly intact. Normal speech. Muscle strength 5/5 to Handgrip, Elbow flexion/extension, Shoulder abduction, Hip flexion, Plantarflexion, dorsiflexion. C5-T1 and L4-S1 gross sensation intact. Patellar Reflex intact b/l. SKIN: Warm, dry, no rashes or lesions noted LABS Laboratory Last Values WBC 4.9 K/mm3 (4.0-10.0) 02/02/18 06:10 RBC 3.92 M/mm3 (3.60-5.2) 02/02/18 06:10 Hgb 11.9 GM/dL (10.7-15.3) 02/02/18 06:10 Hct 35.8 % (32.4-45.2) 02/02/18 06:10 MCV 91.4 fl (80-96) 02/02/18 06:10 MCH 30.3 pg (25.7-33.7) 02/02/18 06:10 MCHC 33.1 g/dl (32.0-36.0) 02/02/18 06:10 RDW 13.7 % (11.6-15.6) 02/02/18 06:10 Plt Count 279 K/MM3 (134-434) 02/02/18 06:10 MPV 7.5 fl (7.5-11.1) 02/02/18 06:10 Absolute Neuts (auto) 2.5 K/mm3 (1.5-8.0) 02/02/18 06:10 Neutrophils % 51.2 % (42.8-82.8) 02/02/18 06:10 Lymphocytes % 30.6 % (8-40) D 02/02/18 06:10 Monocytes % 12.4 % (3.8-10.2) H 02/02/18 06:10 Eosinophils % 4.9 % (0-4.5) H 02/02/18 06:10 Basophils % 0.9 % (0-2.0) 02/02/18 06:10 Nucleated RBC % 0 % (0-0) 02/02/18 06:10 ESR 9 mm/hr (0-30) 02/01/18 07:00 Sodium 136 mmol/L (136-145) 02/02/18 06:10 Potassium 4.5 mmol/L (3.5-5.1) 02/02/18 06:10 Chloride 100 mmol/L (98-107) 02/02/18 06:10 Carbon Dioxide 29 mmol/L (21-32) 02/02/18 06:10 Anion Gap 8 MMOL/L (8-16) 02/02/18 06:10 BUN 13 mg/dL (7-18) 02/02/18 06:10 Creatinine 0.7 mg/dL (0.55-1.3) 02/02/18 06:10 Creat Clearance w eGFR > 60 (>60) 02/02/18 06:10 Random Glucose 89 mg/dL (74-106) 02/02/18 06:10 Calcium 9.1 mg/dL (8.5-10.1) 02/02/18 06:10 Phosphorus 3.4 mg/dL (2.5-4.9) 02/02/18 06:10 Magnesium 2.3 mg/dL (1.8-2.4) 02/02/18 06:10 Total Bilirubin 0.7 mg/dL (0.2-1) 02/02/18 06:10 AST 19 U/L (15-37) 02/02/18 06:10 ALT 20 U/L (13-61) 02/02/18 06:10 Alkaline Phosphatase 55 U/L (45-117) 11/03/18 06:10 Creatine Kinase 171 IU/L (26-192) 02/01/18 10:28 Creatine Kinase Index 0.8 % (0.0-5.0) 02/01/18 10:28 CK-MB (CK-2) 1.5 ng/mL (0.5-3.6) 02/01/18 10:28 Troponin I < 0.02 ng/ml (0.00-0.05) 02/01/18 10:28 Total Protein 6.6 g/dl (6.4-8.2) 02/02/18 06:10 Albumin 3.8 g/dl (3.4-5.0) 02/02/18 06:10 Triglycerides 53 mg/dL (0-150) 02/01/18 06:25 Cholesterol 169 mg/dL (50-200) 02/01/18 06:25 Total LDL Cholesterol 83 mg/dL (5-100) 02/01/18 06:25 HDL Cholesterol 70 mg/dL (40-60) H 02/01/18 06:25 Vitamin B12 1091 pg/ml (193-986) H 02/01/18 06:25 Serum Folate 42 ng/mL (3.1-17.5) H 02/01/18 06:25 TSH 2.36 uIU/ml (0.358-3.74) 02/01/18 06:25 Urine Color Straw 01/31/18 22:15 Urine Appearance Clear 01/31/18 22:15 Urine pH 5.0 (5.0-8.0) 01/31/18 22:15 Ur Specific [place] 1.006 (1.010-1.035) L 01/31/18 22:15 Urine Protein Negative (NEGATIVE) 01/31/18 22:15 Urine Glucose (UA) Negative (NEGATIVE) 01/31/18 22:15 Urine Ketones Negative (NEGATIVE) 01/31/18 22:15 Urine Blood Negative (NEGATIVE) 01/31/18 22:15 Urine Nitrite Negative (NEGATIVE) 01/31/18 22:15 Urine Bilirubin Negative (<2.0 mg/dL) 01/31/18 22:15 Urine Urobilinogen Negative mg/dL (0.2-1.0) 01/31/18 22:15 Ur Leukocyte Esterase Negative (NEGATIVE) 01/31/18 22:15 Microbiology 01/31/18 22:15 Urine - Urine Clean Catch Urine Culture - Final IMAGING: -EKG: NORMAL SINUS RHYTHM, POSSIBLE LEFT ATRIAL ENLARGEMENT, LVH, T WAVE ABNORMALITY, VR 70, QTc 432 -CXR: No acute chest pathology. No comparison studies at this time. -Carotid Doppler: Mild intimal thickening and minimal soft plaque buildup at the right common carotid bifurcation and bulb as well as small plaques at the left common carotid bifurcation and bulb without evidence of hemodynamically significant stenosis, bilaterally. -CT Head without contrast: No definite CT evidence of acute intracranial pathology. Punctate chronic right frontal subcortical infarct. Mild periventricular chronic microvascular ischemic changes. -MRI Brain without contrast: Focal acute/subacute infarct in the left posterior periventricular white matter at the level of the griffin radiata. There is also a left posterior periventricular chronic hemorrhagic lacunar infarct. Moderate atrophy and moderate to marked periventricular chronic microvascular ischemic disease changes are present -ECHO: LV systolic function is normal. EF 50-55%, Mild MR and TR, No pericardial effusion. Transmitral spectral doppler flow pattern is suggestive of impaired LV Relaxation HOSPITAL COURSE: Date of Admission:02/01/18 Date of Discharge: 02/02/18 72 y/o F with PMHx female with history of HLD presented to [facility] after visiting [facility], with RLE and RUE weakness. On Admission, her NIHSS was positive for right-sided upper extremity pronator drift. MRI Brain revealed Focal acute/subacute infarct in the left posterior periventricular white matter at the level of the griffin radiata. Other imaging done was noted above. Patient was seen by Neurology who recommended BP Control, Continuing ASA, Stating, and cardiology follow up. Patient was additionally seen by Speech and swallow and Physical therapy. Patients BP was elevated on arrival and she was started on Lisinoprl. Patient was discharged home with strict instructions to establish care with a PCP, and to follow up with Neurology and Cardiology. Minutes to complete discharge: 45 Discharge Summary Reason For Visit: TANSIENT ISCHEMIC ATTACK Current Active Problems Elevated BP without diagnosis of hypertension (Acute) Stroke (Acute) HLD (hyperlipidemia) (Chronic) Condition: Improved - Instructions Diet, Activity, Other Instructions: You presented to the hospital with weakness. You were found to have had a Stroke. Medication Changes: 1. Start Aspirin 81mg daily 2. Start Lipitor 40 mg daily, Please stop taking your 20mg dose 3. Start Lisinopril 20mg daily Follow up with the following physicians: 1. PCP: Dr. Stephen in one week, please call to establish care 2. Neurology: Dr. Tomas in one week, please call to schedule follow up for your stroke 3. Cardiology: Dr. Schafer in one week, please call to schedule follow up as you need outpatient monitor worker 4. Physical Therapy Follow up labs: 1. BMP, Mag, Phos in one week Please return to the ER if you have any signs or symptoms of chest pain, shortness of breath, uncontrollable fever, chills, nausea, vomiting, numbness, tingling, or weakness in any part of your body, changes in vision, or slurred speech. Please return to the ER if symptoms persist, worsen, or new symptoms arise. Referrals: Kin Tomas MD [Staff Physician] - 1 Week Josh Schafer MD [Staff Physician] - 1 Week Farooq Jamison [Primary Care Provider] - 1 Week Dani Stephen MD [Staff Physician] - 1 Week Disposition: HOME - Home Medications Comprehensive Discharge Medication List: Ambulatory Orders Aspirin [ASA -] 81 mg PO DAILY #30 tab.chew 02/02/18 Atorvastatin Ca [Lipitor] 40 mg PO HS #30 tablet 02/02/18 Lisinopril [Prinivil] 20 mg PO DAILY #30 tablet 02/02/18 Miscellaneous Drug Not In Syst [Outpatient Lab Test] 1 each ASDIR #1 misc 06/17 Miscellaneous Medical Supply [Outpatient Order] 1 each ASDIR #1 misc Miscellaneous Medical Supply [Outpatient Order] 1 each ASDIR #1 misc This patient is new to me today: No Emergency Visit: Yes ED Registration Date: 02/01/18 Care time: The patient presented to the Emergency Department on the above date and was hospitalized for further evaluation of their emergent condition. Critical Care patient: No - Discharge Referral Referred to [facility] Med P.C.: No
[2018-02-02 13:25] VITALS: BP 134/85; PULSE 85; TEMP 97.2
[2018-02-02] MEDS ORDERED: ATORVASTATIN CA 40 MG TABLET (FP) PO SCH (22:00)
[2018-02-02] MEDS ORDERED: ATORVASTATIN CA 20 MG TABLET (FP) PO SCH (22:00)
== END 2018-02-02 13:20 | disposition home or self-care (01) | DRG 65 ==
LOC: JER 19:37 → JERBED 02-01 00:21 → J4S 02-01 15:12 → OBSVTOIN 02-01 16:00
PROVIDERS: ADMIT Internal Medicine; ATTEND Internal Medicine
DX: I63.9 Cerebral infarction, unspecified (principal); I69.351 Hemiplegia and hemiparesis following cerebral infarction affecting right dominant side; R29.701 NIHSS score 1; E66.3 Overweight; Z68.28 Body mass index [BMI] 28.0-28.9, adult; R26.81 Unsteadiness on feet; R03.0 Elevated blood-pressure reading, without diagnosis of hypertension
CPT/HCPCS: 36415; 70450-TC; 70551-TC; 71045-TC-FY; 80053; 80061; 81003; 82550; 82553; 82607; 82746; 83721; 83735; 84100; 84443; 84484; 85025; 85027; 85651; 87086; 93005; 93010; 93306-TC; 93880-TC; 97116-GP; 97161-GP; 99285-25; G0378

== ENCOUNTER 2018-10-20 20:14 | Emergency (ER) | payer OTHER, BC ==
[2018-10-20 20:39] VITALS: TEMP 97.5
--- NOTE | 2018-10-20 21:21 | PDOC ---
History of Present Illness - General Chief Complaint: Lightheaded Stated Complaint: HYPERTENSION Time Seen by Provider: 10/20/18 21:19 History Source: Patient Exam Limitations: No Limitations - History of Present Illness Initial Comments: Alma Rosa Boudreaux is a 73 yo F w a pmh of recent CVA in 01/2018, HLD, and HTN who presents to the [facility] ER via private auto with her because her blood pressure was elevated today. She takes lisinopril as a sole agent for BP once a day and states she took her medication per usual today but was concerned when her BP was elevated with a systolic of 170 and a diastolic of 80. The patient was mainly concerned that she was having another stroke. The patient states that months ago when she checked her BP her systolic was only 135. She has not checked her BP anytime recently in the past few weeks. She states she knwos she is supposed to check more frequently. She also states she feels mildly weak and possibly dehydrated from the heat earlier today. Her house has air-conditioning in some rooms and she tried staying in those rooms today. Patient states she has very mild residual right hand weakness from her prior stroke. The patient denies new weakness, numbness, tingling, or chills, slurring of her words, falling, syncope, headache, neck pain, blurry vision, chest pain, SOB, difficulty breathing, back pain, abdominal pain, dysuria, frequency, or urgency. PCP: Dani Stephen PSH: None reported Social Hx: Drank one cup of wine with dinner. Denies smoking or other substance usage. Independent in ADL. Allergies: NKA, NKDA Past History - Past Medical History Allergies/Adverse Reactions: Allergies Allergy/AdvReac Type Severity Reaction Status Date / Time No Known Allergies Allergy Verified 01/31/18 20:12 Home Medications: Ambulatory Orders Aspirin [ASA -] 81 mg PO DAILY #30 tab.chew 02/02/18 Atorvastatin Ca [Lipitor] 40 mg PO HS #30 tablet 02/02/18 Lisinopril [Prinivil] 20 mg PO DAILY #30 tablet 02/02/18 Multivitamins [Tab-A-Vit -] 1 tab PO DAILY 10/20/18 Anemia: No Asthma: No Cancer: No Cardiac Disorders: No CVA: Yes COPD: No CHF: No Dementia: No Diabetes: No GI Disorders: No Disorders: No HTN: Yes Hypercholesterolemia: Yes Liver Disease: No Seizures: No Thyroid Disease: No - Surgical History Abdominal Surgery: No Appendectomy: No Cardiac Surgery: No Cholecystectomy: No Lung Surgery: No Neurologic Surgery: Yes Orthopedic Surgery: No - Suicide/Smoking/Psychosocial Hx Smoking History: Never smoked Have you smoked in the past 12 months: No If you are a former smoker, when did you quit?: 25 years ago Hx Alcohol Use: No Drug/Substance Use Hx: No Substance Use Type: None Hx Substance Use Treatment: No Review of Systems - Review of Systems Able to Perform ROS?: Yes Comments:: CONSTITUTIONAL: Present: diaphoresis, generalized weakness, malaise Absent: fever, chills, loss of appetite HEENT: Absent: rhinorrhea, nasal congestion, throat pain, throat swelling, difficulty swallowing, mouth swelling, ear pain, eye pain, visual Changes CARDIOVASCULAR: Present: Lightheadedness Absent: chest pain, syncope, palpitations, irregular heart rate, peripheral edema RESPIRATORY: Absent: cough, shortness of breath, dyspnea with exertion, orthopnea, wheezing, stridor, hemoptysis GASTROINTESTINAL: Absent: abdominal pain, abdominal distension, nausea, vomiting, diarrhea, constipation, melena, hematochezia GENITOURINARY: Absent: dysuria, frequency, urgency, hesitancy, hematuria, flank pain, genital pain MUSCULOSKELETAL: Absent: myalgia, arthralgia, joint swelling SKIN: Absent: rash, itching, pallor HEMATOLOGIC/IMMUNOLOGIC: Absent: easy bleeding, easy bruising, lymphadenopathy, frequent infections ENDOCRINE: Absent: unexplained weight gain, unexplained weight loss, heat intolerance, cold intolerance NEUROLOGIC: Absent: headache, focal weakness or paresthesias, dizziness, unsteady gait, seizure, mental status changes, bladder or bowel incontinence PSYCHIATRIC: Present: Anxiety Absent: depression, suicidal or homicidal ideation, hallucinations. *Physical Exam - Vital Signs Last Vital Signs Temp Pulse Resp BP Pulse Ox 97.5 F L 97 H 20 186/99 H 100 10/20/18 20:36 10/20/18 20:36 10/20/18 20:36 10/20/18 20:36 10/20/18 20:36 - Physical Exam Comments: GENERAL: Well developed, well nourished. Awake and alert. No acute distress. HEENT: Normocephalic, atraumatic. PERRLA, EOMI. No conjunctival pallor. Sclera are non- icteric. Moist mucous membranes. Oropharynx is clear. NECK: Supple. Full ROM. No JVD. No thyromegaly. No lymphadenopathy. CARDIOVASCULAR: Regular rate and rhythm. No murmurs, rubs, or gallops. Distal pulses are 2+ and symmetric. PULMONARY: No evidence of respiratory distress. Lungs clear to auscultation bilaterally. No wheezing, rales or rhonchi. ABDOMINAL: Soft. Non-tender. Non-distended. No rebound or guarding. No organomegaly. Normoactive bowel sounds. MUSCULOSKELETAL Normal range of motion at all joints. No bony deformities or tenderness. No CVA tenderness. EXTREMITIES: No cyanosis. No clubbing. No edema. No calf tenderness. SKIN: Warm and diaphoretic. Normal capillary refill. No rashes. No jaundice. NEUROLOGICAL: Alert, awake, appropriate. Cranial nerves 2-12 intact. No deficits to light touch in face, upper extremities and lower extremities. No motor deficits in the in face, upper extremities and lower extremities. Normal speech. Gait is normal without ataxia. PSYCHIATRIC: Cooperative. Good eye contact. Appropriate mood and anxious affect. ED Treatment Course - LABORATORY CBC & Chemistry Diagram: 10/20/18 21:55 10/20/18 21:55 - RADIOLOGY Radiograph Interpretation: CXR: Chest: Altered mental status. Headache. Single apical lordotic view reveals clear lungs, prominent mediastinum with large heart and clear lung heredia. There is a sharp. The bones and soft tissues are intact. Since 01/31/2018, there is no change of an adverse nature. Correlation recommended. Medical Decision Making - Medical Decision Making Alma Rosa Boudreaux is a 73 yo F w a pmh of recent CVA in 01/2018, HLD, and HTN who presents to the [facility] ER via private auto with her because her blood pressure was elevated today. She takes lisinopril as a sole agent for BP once a day and states she took her medication per usual today but was concerned when her BP was elevated with a systolic of 170 and a diastolic of 80. The patient was mainly concerned that she was having another stroke. The patient states that months ago when she checked her BP her systolic was only 135. She has not checked her BP anytime recently in the past few weeks. She states she knwos she is supposed to check more frequently. She also states she feels mildly weak and possibly dehydrated from the heat earlier today. Her house has air-conditioning in some rooms and she tried staying in those rooms today. Patient states she has very mild residual right hand weakness from her prior stroke. Vital Signs Temp Pulse Resp BP Pulse Ox 97.5 F L 97 H 20 186/99 H 100 10/20/18 20:36 10/20/18 20:36 10/20/18 20:36 10/20/18 20:36 10/20/18 20:36 DDx IBNLT: hypertensive urgency vs emergency, ACS/WV, heat stroke vs exhaustion , dehydration, electrolyte/metabolic disturbance Plan: Labs, EKG, CXR, IV hdyration, re-assess. Labs: Mild hyponatremia EKG: NS rate of 89, left atrial enlargement, septal infarct age undetermined, TWI in anterior leads. CXR: Unremarkable. Re-assessment: Patient feels much better after IV hydration and requests to eb discharged. This was likely a heat exhaustion and dehydration episode from the heat wave today. Disposition: Home with PCP FU *DC/Admit/Observation/Transfer Diagnosis at time of Disposition: Heat exhaustion Qualifiers: Encounter type: initial encounter Qualified Code(s): T67.5XXA - Heat exhaustion , unspecified, initial encounter - Discharge Dispostion Disposition: HOME Condition at time of disposition: Improved Decision to Admit order: No - Referrals Referrals: Dani Stephen MD [Staff Physician] - - Patient Instructions Printed Discharge Instructions: DI for Heat Exhaustion and Heat Stroke Additional Instructions: You came into the ER with weakness and high blood pressure. We believe you were affected by the heat and suffering from heat exhaustion. please make sure to schedule a follow up appointment with your primary care doctor in the next 3 to 5 days to make sure you are feeling well and being taken care of. Come back to the Er immediately if your pain worsens, you feel new weakenss, numbness, tingling, or chills. thank you for coming to the [facility] ER. We hope you feel better soon! Print Language: KAZAKH - Post Discharge Activity
[2018-10-20] MEDS ORDERED: SODIUM CHLORIDE 1,000 ML IV STA (21:37)
[2018-10-20 22:36] LABS: BASO % 0.7 % (0-2.0); EOS % 2.9 % (0-4.5); HEMATOCRIT 34.9 % (32.4-45.2); HEMOGLOBIN 12.1 GM/dL (10.7-15.3); LYMPH % 23.3 % (8-40); MCH 31.4 pg (25.7-33.7); MCHC 34.6 g/dl (32.0-36.0); MEAN CELL VOLUME 90.9 fl (80-96); MEAN PLT VOLUME 7.3 fl (7.5-11.1); MONO % 9.9 % (3.8-10.2); NEUT % 63.2 % (42.8-82.8); PLATELET COUNT 278 K/MM3 (134-434); RBC 3.84 M/mm3 (3.60-5.2); RDW 13.1 % (11.6-15.6); WHITE BLOOD COUNT 5.6 K/mm3 (4.0-10.0)
[2018-10-20 23:08] LABS: ALBUMIN 4.1 g/dl (3.4-5.0); ALK PHOS 51 U/L (45-117); ANION GAP 8 MMOL/L (8-16); BILIRUBIN,TOTAL 0.5 mg/dL (0.2-1); BLOOD UREA NITROGEN 17.4 mg/dL (7-18); CALCIUM 8.7 mg/dL (8.5-10.1); CHLORIDE 95 mmol/L (98-107); CO2 25 mmol/L (21-32); CREATININE 0.7 mg/dL (0.55-1.3); GLUCOSE,RANDOM 94 mg/dL (74-106); SGOT/AST 22 U/L (15-37); SGPT/ALT 23 U/L (13-61); SODIUM 128 mmol/L (136-145); TOT PROT 6.8 g/dl (6.4-8.2)
[2018-10-21 00:28] VITALS: BP 126/72; PULSE 72
--- NOTE | 2018-10-21 00:38 | PDOC ---
Documentation entered by Darlene Pathak SCRIBE, acting as scribe for Julianne Santoyo MD. Julianne Santoyo MD: This documentation has been prepared by the Lawson de jesus Brenda, SCRIBE, under my direction and personally reviewed by me in its entirety. I confirm that the documentation accurately reflects all work, treatment, procedures, and medical decision making performed by me. Attending Attestation - Resident Resident Name: Jaquan Moe - ED Attending Attestation I have performed the following: I have examined & evaluated the patient, The case was reviewed & discussed with the resident, I agree w/resident's findings & plan, Exceptions are as noted - HPI HPI: 10/20/18 22:47 The patient is a 73 year old female, with a significant PMH of CVA in January 2018 (with residual righ hand weakness), HLD, and HTN (on lisinopril daily), who presents to the emergency department with concern for elevated blood pressure today. She sates taking her regular blood pressure medication today, but later found her BP to be 170/90, which gave her concern for another stroke. Patient also notes feeling weakness with a possibility of dehydration due to being outside in the heat today, and lack of proper air-conditioning at home . The patient denies numbness or tingling, and slurring of words. Denies chest pain, shortness of breath. Denies fever, chills, nausea, vomiting, diarrhea and constipation. Denies urinary symtoms. Allergies: NKA Past surgical history: Not reported. Social history: Social alcohol use. Denies tobacco use or illicit drug use. PCP: Dani Stephen - Physicial Exam PE: 10/20/18 22:49 GENERAL: Well developed, well nourished. Awake and alert. No acute distress. HEENT: Normocephalic, atraumatic. PERRLA, EOMI. No conjunctival pallor. Sclera are non- icteric. Moist mucous membranes. Oropharynx is clear. NECK: Supple. Full ROM. No JVD. Carotid pulses 2+ and symmetric, without bruits. No thyromegaly. No lymphadenopathy. CARDIOVASCULAR: Regular rate and rhythm. No murmurs, rubs, or gallops. Distal pulses are 2+ and symmetric. PULMONARY: No evidence of respiratory distress. Lungs clear to auscultation bilaterally. No wheezing, rales or rhonchi. ABDOMINAL: Soft. Non-tender. Non-distended. No rebound or guarding. No organomegaly. Normoactive bowel sounds. MUSCULOSKELETAL: Normal range of motion at all joints. No bony deformities or tenderness. No CVA tenderness. EXTREMITIES: No cyanosis. No clubbing. No edema. No calf tenderness. SKIN: Warm and dry. Normal capillary refill. No rashes. No jaundice. NEUROLOGICAL: Alert, awake, appropriate. Cranial nerves 2-12 intact. No deficits to light touch and temperature in face, upper extremities and lower extremities. No motor deficits in the in face, upper extremities and lower extremities. Normoreflexic in the upper and lower extremities. Normal speech. Toes are down- going bilaterally. Gait is normal without ataxia. PSYCHIATRIC: Cooperative. Good eye contact. Appropriate mood and affect. - Medical Decision Making 10/21/18 00:35 pt's BP came down without any intervention ekg was nsr with no ischemia noted labs were reviewed and cbc was unremarkable negative troponin chemistries showed low sodium but she received IVF 10/21/18 00:37 pt discharged home
--- NOTE | 2018-10-21 17:29 | EKG ---
Test Reason : Blood Pressure : / mmHG Vent. Rate : 089 BPM Atrial Rate : 089 BPM P-R Int : 138 ms QRS Dur : 090 ms QT Int : 348 ms P-R-T Axes : 060 -10 047 degrees QTc Int : 423 ms NORMAL SINUS RHYTHM POSSIBLE LEFT ATRIAL ENLARGEMENT SEPTAL INFARCT , AGE UNDETERMINED ABNORMAL ECG WHEN COMPARED WITH ECG OF 31-JAN-2018 20:07, SEPTAL INFARCT IS NOW PRESENT T WAVE INVERSION NO LONGER EVIDENT IN INFERIOR LEADS T WAVE INVERSION LESS EVIDENT IN ANTERIOR LEADS Confirmed by WONG SOTOMAYOR MD ([id number]) on 10/21/2018 5:29:30 PM Referred By: Confirmed By:WONG SOTOMAYOR MD
== END 2018-10-21 00:38 | disposition home or self-care (01) ==
LOC: JER 20:14
PROC: 3E0337Z Introduction of Electrolytic and Water Balance Substance into Peripheral Vein, Percutaneous Approach (ICD-10-PCS; principal; 2018-10-20)
DX: T67.5XXA Heat exhaustion, unspecified, initial encounter (principal); I10 Essential (primary) hypertension
CPT/HCPCS: 36415; 71045-TC-FY; 80053; 84484; 85025; 93005; 93010; 96360; 99283-25; J7030